=== PATIENT | male | born 1995 | race Two or more races ===

== ENCOUNTER 2021-05-27 18:38 | Emergency (ER) | payer MEDICAID ==
[~2021-05-27] VITALS: Ht 175.3 cm; Wt 108.0 kg
[2021-05-27 18:54] VITALS: BP 146/95
[2021-05-27] MEDS ORDERED: OXYM-20 (20:40)
[2021-05-27] MEDS ORDERED: IBUP600T28 PO (20:40)
[2021-05-27] MEDS ORDERED: [UNRECOGNIZED DRUG - CODE] (20:40)
== END 2021-05-27 21:57 | disposition home or self-care (01) ==
LOC: ER 18:42
DX: J06.9 Acute upper respiratory infection, unspecified (principal); Z20.822 Contact with and (suspected) exposure to COVID-19
CPT/HCPCS: 36415; 87426